=== PATIENT | female | born 1990 | race American Indian/Alaskan Native ===

== ENCOUNTER 2017-05-10 14:19 | Emergency (ER) | payer MEDICAID ==
[2017-05-10 14:46] VITALS: RESP 18
[2017-05-10 15:47] VITALS: BP 145/99; PULSE 72; TEMP 98; O2SAT 95
--- NOTE | 2017-05-10 17:59 | C.PDOC ---
History Of Present Illness 27 year old female presents to the ED for evaluation of laceration to the tip of her left fourth digit sustained earlier today. Patient reports she was cutting bread with a knife when it cut the tip of her finger. She notes bleeding stopped prior to arrival and tetanus is not up to date. Patient is right handed. She denies changes in sensation or other injuries. Time Seen by Provider: 05/10/17 14:51 Chief Complaint (Nursing): Abnormal Skin Integrity History Per: Patient History/Exam Limitations: no limitations Onset/Duration Of Symptoms: Hrs Current Symptoms Are (Timing): Still Present Location Of Injury: Left: Hand (fourth digit ) Recent travel outside of the [place]: No Past Medical History Reviewed: Historical Data, Nursing Documentation, Vital Signs Vital Signs: Last Vital Signs Temp 98.0 F 05/10/17 15:45 Pulse 72 05/10/17 15:45 Resp 18 05/10/17 15:45 BP 145/99 H 05/10/17 15:45 Pulse Ox 95 05/10/17 18:01 Family History: States: Unknown Family Hx - Social History Hx Alcohol Use: No Hx Substance Use: No Review Of Systems Skin: Positive for: Other (laceration to tip of left fourth digit ) Neurological: Negative for: Weakness, Numbness Physical Exam - Physical Exam Appears: Well, Non-toxic, No Acute Distress Skin: Warm, Dry, Other (0.25 cm laceration to tip of the left fourth digit. Laceration not actively bleeding. ) Extremity: Normal ROM, No Tenderness, Capillary Refill (good capillary refill, less than two seconds ), No Deformity, No Swelling Pulses: Left Radial: Normal, Right Radial: Normal Neurological/Psych: Oriented x3, Normal Motor, Normal Sensation ED Course And Treatment O2 Sat by Pulse Oximetry: 95 (RA) Progress Note: Patient was given Tetanus vaccine. Dermabound was used to repair the laceration. Disposition - Disposition Disposition: HOME/ ROUTINE Disposition Time: 14:40 Condition: IMPROVED Additional Instructions: Thank you for letting us take care of you today. Your provider was Dr. Adam. You were treated for a finger laceration. The emergency medical care you received today was directed at your acute symptoms. If you were prescribed any medication, please fill it and take as directed. It may take several days for your symptoms to resolve. Return to the Emergency Department if your symptoms worsen, do not improve, or if you have any other problems. Please contact your doctor or call one of the physicians/clinics you have been referred to that are listed on the Patient Visit Information form that is included in your discharge packet. Bring any paperwork you were given at discharge with you along with any medications you are taking to your follow up visit. Our treatment cannot replace ongoing medical care by a primary care provider (PCP) outside of the emergency department. Thank you for allowing the [facility] team to be part of your care today. Keep area clean and dry Follow up with your doctor if you have concerns. Instructions: Skin Adhesive Care (ED) Forms: Subtext (Malay) - Clinical Impression Clinical Impression: Finger laceration - Scribe Statement The provider has reviewed the documentation as recorded by the Scribjessica Tucker All medical record entries made by the Scribe were at my direction and personally dictated by me. I have reviewed the chart and agree that the record accurately reflects my personal performance of the history, physical exam, medical decision making, and the department course for this patient. I have also personally directed, reviewed, and agree with the discharge instructions and disposition.
== END 2017-05-10 15:47 | disposition home or self-care (01) ==
LOC: C.ER 14:19
DX: S61.215A Laceration without foreign body of left ring finger without damage to nail, initial encounter (principal); W26.0XXA Contact with knife, initial encounter; Z23 Encounter for immunization